=== PATIENT | female | born 2000 | race African-American/Black ===

== ENCOUNTER 2023-09-11 09:58 | Emergency (ER) | payer MEDICAID, OTHER ==
[2023-09-11 10:18] LABS: Hematocrit 31.8 % (36.0-47.0); Hemoglobin 9.9 g/dL (12.0-16.0); Mean Corpuscular HGB CONC 31.1 g/dL (32.0-36.0); Mean Corpuscular Hemoglobin 25.8 pg (25.0-35.0); Mean Corpuscular Volume 82.8 fl (78.0-98.0); Mean Platelet Volume 12.1 fL (7.4-10.4); Platelet Count 176 10x3/uL (130-400); RBC Distribution Width 16.2 % (11.5-14.5); Red Blood Cell (RBC) Count 3.84 mill/uL (4.00-5.20); White Blood Cell (WBC) Count 9.7 10x3/uL (4.8-10.8)
[2023-09-11 10:20] LABS: Delete Auto Diff?? YES; Manual Diff?? YES
[2023-09-11 10:31] LABS: INR-International Normal Ratio 0.9; Prothrombin Time 12.8 sec (12.0-14.7)
[2023-09-11 10:32] LABS: PTT 28.4 sec (22.9-36.1)
[2023-09-11 10:42] LABS: BHCG - Serum Negative (NEGATIVE); Pregs Control Background? CLEAR/WHITE (CLR/WHITE); Pregs Control Bar Appear? YES (CONTROL BAR)
[2023-09-11 10:46] LABS: Band 2 % (5-11); CellaVision Operator ID LAB.GE; Large Platelets 34.3 % (0-5); Lymphocytes 3 % (28-48); Monocytes 5 % (0-4); Neutrophil 89 % (31-61); Platelet Adequacy Comment Platelets Normal; Polychromasia SLIGHT = 2-3 cells HPF (0-2); Reactive Lymphocytes 1 % (0-10); Total Cell Count 99
[2023-09-11 11:00] LABS: ALT (SGPT) 20 U/L (8-55); AST (SGOT) 27 U/L (5-34); Albumin 4.4 g/dL (3.5-5.0); Alkaline Phosphatase 49 U/L (40-100); Anion Gap 15 mmol/L (10-20); BUN (Urea Nitrogen) 8 mg/dL (7.0-18.7); Bilirubin, Total 0.5 mg/dL (0.2-1.2); Calc. Creatinine Clearance 0 mL/min (70-130); Calcium 9.3 mg/dL (7.8-10.44); Carbon Dioxide 23 mmol/L (22-29); Chloride 103 mmol/L (98-107); Estimated GFR 101; Globulin 3.3 g/dL (2.4-3.5); Glucose 90 mg/dL (70-105); Lipase 10 U/L (8-78); Potassium 3.8 mmol/L (3.5-5.1); Protein, Total 7.7 g/dL (6.0-8.3); Sodium 137 mmol/L (136-145)
[2023-09-11] MEDS ORDERED: Iopamidol-370 76% 500 ML MDV (1 ML CHARGE) ONE (11:01)
[2023-09-11] MEDS ORDERED: cefTRIAXone (ROCEPHIN) 2 GM VIAL ONE (11:23)
[2023-09-11] MEDS ORDERED: Acetaminophen 500 MG TAB ONE (11:23)
[2023-09-11] MEDS ORDERED: Sodium Chloride 0.9% 100 ML ONE (11:24)
[2023-09-11 12:45] LABS: Bacteria/HPF None Seen HPF (None Seen); Bilirubin Negative (Negative); Blood, Urine Negative (Negative); CAUTI Indications for Culture Pelvic or flank pain; Clarity Clear (Clear); Glucose, Urine (Dipstick) Normal (Negative); Ketone, Urine 10 mg/dL (Negative); Leukocyte Negative Leu/uL (Negative); Nitrite Negative (Negative); Protein, Urine (Dipstick) 10 mg/dL (Neg-Trace); RBC/HPF 0-3 HPF (0-3); Specific Gravity, Urine 1.026 (1.002-1.036); Squamous Epithelial 0-3 HPF (0-3); Urobilinogen Normal mg/dL (Less than 2); WBC/HPF 0-3 HPF (0-3)
[2023-09-11 12:56] LABS: Urine Culture Reflex No No
== END 2023-09-11 14:49 | disposition home or self-care (01) ==
LOC: ERS 09:58
DX: R50.9 Fever, unspecified (principal); D64.9 Anemia, unspecified; B34.9 Viral infection, unspecified
CPT/HCPCS: 36415; 71045; 74177; 76856; 80053; 81001; 83605; 83690; 84703; 85025; 85610; 85730; 87040; 87086; 93976; 94760; 96365; J0696; J3490; Q9967

== ENCOUNTER 2023-12-12 16:27 | Emergency (ER) | payer OTHER | END 2023-12-12 17:24 | disposition home or self-care (01) | LOC: ERS 16:27 | DX: M79.641 Pain in right hand (principal) ==

== ENCOUNTER 2024-01-10 14:52 | Emergency (ER) | payer OTHER ==
[2024-01-10 15:19] LABS: Bacteria/HPF None Seen HPF (None Seen); Bilirubin Negative (Negative); Blood, Urine Negative (Negative); CAUTI Indications for Culture Pregnancy; Clarity Clear (Clear); Glucose, Urine (Dipstick) Normal (Negative); Ketone, Urine Negative (Negative); Leukocyte Negative Leu/uL (Negative); Nitrite Negative (Negative); Pregnancy Test - Urine (BHCG) Negative (Negative); Pregu Control Background? CLEAR/WHITE (CLR/WHITE); Pregu Control Bar Appear? YES (CONTROL BAR); Protein, Urine (Dipstick) Negative (Neg-Trace); RBC/HPF 0-3 HPF (0-3); Specific Gravity 1.029 (1.002-1.036); Specific Gravity, Urine 1.029 (1.002-1.036); WBC/HPF 0-3 HPF (0-3)
[2024-01-10 15:21] LABS: Urine Culture Reflex Yes Yes
== END 2024-01-10 15:39 | disposition home or self-care (01) ==
LOC: ERS 14:52
DX: R42 Dizziness and giddiness (principal); R11.0 Nausea; H11.441 Conjunctival cysts, right eye
CPT/HCPCS: 81001; 81025; 87086; 93005

== ENCOUNTER 2025-10-29 15:42 | Emergency (ER) | payer OTHER, SELFPAY ==
[2025-10-29] MEDS ORDERED: Lidocaine 1% PF 5 ML VIAL ONE (17:08)
[2025-10-29] MEDS ORDERED: Bacitracin 1 PK ONE (17:08)
[2025-10-29] MEDS ORDERED: Ibuprofen 800 MG TAB ONE (17:08)
== END 2025-10-29 17:39 | disposition home or self-care (01) ==
LOC: ERS 15:42
DX: S61.412A Laceration without foreign body of left hand, initial encounter (principal); Z23 Encounter for immunization; W25.XXXA Contact with sharp glass, initial encounter; Y93.89 Activity, other specified
CPT/HCPCS: 12002; 90471; 90715